=== PATIENT | male | born 1955 | race Caucasian/White ===

== ENCOUNTER 2017-03-01 15:59 | Inpatient (IN) ==
[2017-03-01 16:33] VITALS: BMI 5174.9
[2017-03-01] MEDS ORDERED: NITROSTAT SL PRN (16:35)
[2017-03-01] MEDS ORDERED: VISTARIL INJ IM PRN (16:35)
[2017-03-01] MEDS ORDERED: TYLENOL PO PRN (16:35)
[2017-03-01] MEDS ORDERED: ATROPINE SULFATE PFS IVP PRN (16:35)
[2017-03-01] MEDS ORDERED: MORPHINE 4 MG/ML VIAL IVP PRN (16:35)
[2017-03-01] MEDS: SOLU-MEDROL 125 MG IVP SCH ×2 (17:47→20:24)
[2017-03-01] MEDS: ROCEPHIN 1 GM in SODIUM CHLORIDE 50 ML IV SCH (17:48)
[2017-03-01] MEDS: DEXTROSE 5%-1/2NS IV SOLUTION 1,000 ML IV SCH (17:48)
[2017-03-01] MEDS: TUSSIONEX PO SCH ×2 (17:54→20:23)
[2017-03-01] MEDS ORDERED: ZOFRAN 4 MG/2 ML IVP PRN (18:36)
[2017-03-01] MEDS ORDERED: ZITHROMAX 500 MG in SODIUM CHLORIDE 250 ML IV SCH (19:00)
[2017-03-01] MEDS: TRILEPTAL PO SCH (20:24)
[2017-03-01] MEDS ORDERED: BETAPACE PO SCH (21:00)
[2017-03-01] MEDS ORDERED: NON-FORMULARY MEDICATION (Oxcarbazepine [Trileptal] 300 MG) PO SCH (21:00)
[2017-03-02] MEDS: SOLU-MEDROL 125 MG IVP SCH (05:18)
--- NOTE | 2017-03-02 07:17 | DI ---
EXAM: Single view of the chest. History: Pneumonia Comparison: Chest radiograph 06/24/2015 Findings: Heart size is normal. No focal consolidation. No appreciable pleural fluid and no pneumo thorax. No acute osseous abnormalities. Impression: No acute cardiopulmonary process
[2017-03-02] MEDS: ASPIRIN EC PO SCH (08:43)
[2017-03-02] MEDS: ZITHROMAX PO SCH (08:43)
[2017-03-02] MEDS: ROCEPHIN 1 GM in SODIUM CHLORIDE 50 ML IV SCH (08:43)
[2017-03-02] MEDS: TUSSIONEX PO SCH ×2 (08:43→20:09)
[2017-03-02] MEDS: BETAPACE PO SCH (08:48)
--- NOTE | 2017-03-02 09:39 | PCM.PROG ---
Attending Provider: ATTENDING PROVIDER: Dr. MALDONADO COTTON This patient is seen with Therese Gunter, Nurse Practitioner. DATE OF SERVICE: 03/02/17 SUBJECTIVE: This 62 year old WHITE/ M was hospitalized 03/01/17. The patient is lying in bed, alert. Nausea is improved from yesterday. REVIEW OF SYSTEMS: CONSTITUTIONAL: Weakness. No night sweats. No fever or chills. HEENT: Eyes: No visual changes. No eye pain. No eye discharge. ENT: No runny nose. No epistaxis. No sinus pain. No odynophagia. No congestion. RESPIRATORY: Cough and congestion. No hemoptysis. No shortness of breath. CARDIOVASCULAR: No angina symptoms. No CHF symptoms. No atypical chest pain for CAD. No palpitations. No orthopnea.. GASTROINTESTINAL: No abdominal pain. No nausea or vomiting. No diarrhea or constipation. No hematemesis. No hematochezia. GENITOURINARY: No urgency. No frequency. No dysuria. No hematuria. No obstructive symptoms. No discharge. No pain. No significant abnormal bleeding. MUSCULOSKELETAL: No musculoskeletal pain; no joint swelling. NEUROLOGICAL: Awake, alert, oriented to time, place and person. No headache. No neck pain. No syncope. No seizures. No dizziness. PSYCHIATRIC: Not anxious. No depression. No suicidal thoughts. No homicidal thoughts. SKIN: No rash. No lesions. No wounds. ENDOCRINE: No unexplained weight loss. No weight gain. HEMATOLOGIC/LYMPHATIC: No anemia. No purpura. No petechiae. No prolonged or excessive bleeding. No palpable lymph nodes. PHYSICAL EXAMINATION: GENERAL: The patient is awake, alert and oriented, lying in bed in no distress. VITAL SIGNS: Temperature 97.4 F, Pulse 74, Respiratory Rate 18, BP 131/74, Pulse Ox 91% HEENT: Head normocephalic, atraumatic. Eyes: Extraocular muscles are intact. Pupils are equal, round and reactive to light and accommodation. Ears: No lesions. Nose appeared normal. Throat: No exudate or erythema. NECK: Supple. No JVD, no carotid bruit. No lymphadenopathy or thyromegaly. LUNGS: Diminished breath sounds with wheeze on the right. Percussion note normal. Chest symmetrical. HEART: S1, S2, no S3. No murmurs. No cyanosis or clubbing. No ascites. Pulses: Dorsalis pedis and posterior tibial pulses +1 to +2 both sides. ABDOMEN: Soft. Non-tender. Bowel sounds active. No CVA tenderness. No mass felt. EXTREMITIES: No edema. Full range of motion of all extremities, equal. NEUROLOGIC: No focal deficit. Cranial nerves II through XII are grossly intact. No headache, no double vision or headache. SKIN: Not dry. Intact. Turgor-normal. LYMPHATIC: No palpable lymph nodes/no lymphedema. MUSCULOSKELETAL: Normal joints with no swelling. Muscle tone is normal. LAB REVIEW: 03/02/17 04:30 03/02/17 04:30 03/02/17 04:45: Urine Color Yellow, Urine Clarity Clear, Urine pH 6.0, Ur Specific [place] 1.025, Urine Protein 1+, Urine Glucose (UA) Negative, Urine Ketones 2+, Urine Blood Negative, Urine Nitrite Negative, Urine Bilirubin Negative, Urine Urobilinogen 0.2, Ur Leukocyte Esterase Negative, Ur Squamous Epith Cells Not present, Hyaline Casts 0-2, Urine Mucus 1+ 03/02/17 04:30: Sodium 135 L, Potassium 4.0, Chloride 102, Carbon Dioxide 27, Anion Gap 10.0, BUN 17, Creatinine 0.90, Estimated GFR (MDRD) 86.00, BUN/ Creatinine Ratio 18.88, Glucose 195 H D, Calcium 8.7, Total Bilirubin 0.5, AST 19, ALT 29, Alkaline Phosphatase 95, Total Protein 8.0, Albumin 3.5, Globulin 4.5, Albumin/Globulin Ratio 0.78 03/02/17 04:30: WBC 12.39 H, RBC 5.04, Hgb 15.3, Hct 43.7, MCV 86.7, MCH 30.4, MCHC 35.0, RDW Coeff of Darian 13.6, Plt Count 299, Immature Gran % (Auto) 0.6, Neut % (Auto) 86.3, Lymph % (Auto) 12.3, [place] % (Auto) 0.6, Eos % (Auto) 0.0, Baso % (Auto) 0.2, Immature Gran # (Auto) 0.1, Neut # 10.7 H, Lymph # 1.5, [place] # 0.1 L, Eos # 0.0, Baso # 0.0 03/01/17 19:25: Influenza A (Rapid) Negative by naat, Influenza B (Rapid) Negative by naat 03/01/17 17:15: Sodium 137, Potassium 4.0, Chloride 101, Carbon Dioxide 29, Anion Gap 11.0, BUN 18, Creatinine 1.02, Estimated GFR (MDRD) 74.00, BUN/ Creatinine Ratio 17.64, Glucose 132 H, Calcium 9.0, Total Bilirubin 0.6, AST 22 , ALT 30, Alkaline Phosphatase 98, Total Creatine Kinase 95, Troponin I < 0.0100 , Total Protein 8.3 H, Albumin 3.8, Globulin 4.5, Albumin/Globulin Ratio 0.84 03/01/17 17:00: WBC 12.84 H, RBC 5.07, Hgb 15.6, Hct 44.0, MCV 86.8, MCH 30.8, MCHC 35.5 H, RDW Coeff of Darian 13.6, Plt Count 285, Immature Gran % (Auto) 0.5, Neut % (Auto) 77.7, Lymph % (Auto) 14.8, [place] % (Auto) 6.3, Eos % (Auto) 0.4, Baso % (Auto) 0.3, Immature Gran # (Auto) 0.1, Neut # 10.0 H, Lymph # 1.9, [place] # 0.8, Eos # 0.1, Baso # 0.0 03/01/17 16:39: Puncture Site Rb, O2 Saturation 92.0 L, ABG pH 7.390, ABG pCO2 43.4, ABG pO2 63.0 L, ABG HCO3 26.3 H, ABG Total CO2 28, ABG Base Excess 1, FiO2 % 21.0 ASSESSMENT: 1. Acute bronchitis 2. Pleuritic pain 3. Vomiting which is improved PLAN: Start Xopenex t.i.d. Plan and coordination of the patient's care discussed in the presence of Franchise Development Manager and nurse. CONDITION: STABLE SCRIBED BY: PUSHPA IBARRA Pbx Repairer scribed while in presence of service performed by Dr. Cotton/Therese Gunter APRN on 03/02/17 ([id number])
[2017-03-02] MEDS: XOPENEX 1.25 MG NEB SCH ×3 (11:13→23:20)
--- NOTE | 2017-03-02 12:48 | HP ---
DATE OF SERVICE: 03/01/17 HISTORY OF PRESENT ILLNESS: This is a 62-year-old male with nausea/vomiting, vomiting here almost five times times 24 hours. Also, shortness of breath, cough and congestion times three days. Dizzy, unable to walk without help. Sputum is yellowish. No symptoms of CHF or CAD. PAST MEDICAL HISTORY: Sleep apnea on CPAP Seizure disorder Dyslipidemia PVC's Hyperglycemia PAST SURGICAL HISTORY: Appendectomy (childhood) REVIEW OF SYSTEMS: CONSTITUTIONAL: Positive for fatigue. No fever. HEENT: Sinus drainage. No sore throat. RESPIRATORY: Cough and congestion. No hemoptysis. CARDIOVASCULAR: Positive for shortness of breath. No atypical chest pain for coronary artery disease. No angina, CHF symptoms or palpitations. GASTROINTESTINAL: No melena or abdominal pain. No GERD. GENITOURINARY: No hematuria, no prostatism, no polyuria. COMPLIANCE ANALYST: No blackout, no dizziness, no headache, no double vision. MUSCULOSKELETAL: Osteoarthritis pain. No joint swelling. ENDOCRINE: No weight loss, no weight gain. SKIN: Dry. No rash. PSYCHIATRIC: Not anxious, no depression, no suicidal thoughts, no homicidal thoughts. SOCIAL HISTORY: The patient is (42 years), children 2 (one boy, age 38 and one girl age 33). Occupation - CPA. Nonsmoker. No alcohol use. No illicit drug use. FAMILY HISTORY: Father at age 82 with COPD, renal disease. Mother at age 85, ALS. No brothers. One sister, age 67 with diabetes mellitus, hyperlipidemia and hypertension. MEDICATIONS: Simvastatin 20 mg one daily Betapace 80 mg one daily ASA daily Trileptal 300 mg one h.s. ALLERGIES: IBUPROFEN, MORPHINE, MRI IVP DYE, CODEINE, MOBIC, LORTAB (nausea) PHYSICAL EXAMINATION: V/S: Pulse 85, BP 146/86, temperature 97, 02 sat 95%, weight 264.8. Height 6', BMI 38. GENERAL APPEARANCE: Oriented times three. HEENT: Normal. NECK: No JVP, no bruits. RESPIRATORY: Lungs: Creps on the right greater on left with mild wheeze. CARDIOVASCULAR: S1, S2, no S3, no murmurs. No cyanosis, clubbing. No ascites. GI/ABDOMEN: No tenderness. Bowel sounds are active. EXTREMITIES: No edema, pulses +1, equal. COMPLIANCE ANALYST: Deep tendon reflexes, sensory, motor and gait all normal. SKIN: Dry. Turgor poor. ASSESSMENT: 1. ACUTE PNEUMONITIS, RIGHT LOWER LOBE/BRONCHITIS/PLEURITIC PAIN 2. DEHYDRATION 3. ACUTE GASTRITIS 4. SLEEP APNEA ON CPAP 5. SEIZURE DISORDER 6. DYSLIPIDEMIA 7. PVC 8. HYPERGLYCEMIA PLAN: 1. Admit 2. Regular diet 3. Routine telemetry orders 4. Skip cardiac markers 5. 1000 cc's D5 1/2 NS q.12hourly 6. Rapid flu A & B 7. Betapace 80 mg p.o. daily 8. Trileptal 300 mg p.o. at h.s. daily 9. ABG 10. Sputum for culture and sensitivity & gram stain 11. Solu-Cortef 125 mg IV now and 8 hourly 12. Rocephin 1 gm IV now and 24 hourly 13. Tussionex one teaspoon p.o. b.i.d. and one now 14. Daily CBC and CMP 15. Xanax 0.25 mg p.o. at h.s. daily TIME SPENT: More than 70 minutes. MTDD
[2017-03-02] MEDS: DEXTROSE 5%-1/2NS IV SOLUTION 1,000 ML IV SCH (13:29)
[2017-03-02] MEDS: SOLU-CORTEF 250 MG IVP SCH ×2 (13:29→20:09)
[2017-03-02] MEDS: TRILEPTAL PO SCH (20:15)
[2017-03-02] MEDS: XANAX PO SCH (20:17)
[2017-03-03] MEDS: DEXTROSE 5%-1/2NS IV SOLUTION 1,000 ML IV SCH ×2 (03:03→09:31)
[2017-03-03] MEDS: XOPENEX 1.25 MG NEB SCH ×4 (04:07→22:17)
[2017-03-03] MEDS: SOLU-CORTEF 250 MG IVP SCH ×3 (05:09→20:16)
[2017-03-03] MEDS: ROCEPHIN 1 GM in SODIUM CHLORIDE 50 ML IV SCH (08:15)
[2017-03-03] MEDS: TUSSIONEX PO SCH ×2 (08:15→20:16)
[2017-03-03] MEDS: ZITHROMAX PO SCH (08:15)
[2017-03-03] MEDS: ASPIRIN EC PO SCH (08:15)
[2017-03-03] MEDS: BETAPACE PO SCH (08:15)
--- NOTE | 2017-03-03 09:45 | PCM.PROG ---
Attending Provider: ATTENDING PROVIDER: Dr. MALDONADO COTTON DATE OF SERVICE: 03/03/17 SUBJECTIVE: This 62 year old WHITE/ M was hospitalized 03/01/17. The patient is hospitalized with acute pneumonitis/bronchitis, dehydration and nausea which has subsided. No vomiting. He is still coughing which is mild. REVIEW OF SYSTEMS: CONSTITUTIONAL: Fatigue and weakness. No night sweats. No fever or chills. HEENT: Eyes: No visual changes. No eye pain. No eye discharge. ENT: No runny nose. No epistaxis. No sinus pain. No odynophagia. No congestion. RESPIRATORY: Mild cough and congestion. No hemoptysis. No shortness of breath. CARDIOVASCULAR: No angina symptoms. No CHF symptoms. No atypical chest pain for CAD. No palpitations. No orthopnea.. GASTROINTESTINAL: Appetite is improving. No abdominal pain. No nausea or vomiting. No diarrhea or constipation. No hematemesis. No hematochezia. GENITOURINARY: No urgency. No frequency. No dysuria. No hematuria. No obstructive symptoms. No discharge. No pain. No significant abnormal bleeding. MUSCULOSKELETAL: No musculoskeletal pain; no joint swelling. NEUROLOGICAL: Awake, alert, oriented to time, place and person. No headache. No neck pain. No syncope. No seizures. No dizziness. PSYCHIATRIC: Not anxious. No depression. No suicidal thoughts. No homicidal thoughts. SKIN: No rash. No lesions. No wounds. ENDOCRINE: No unexplained weight loss. No weight gain. HEMATOLOGIC/LYMPHATIC: No anemia. No purpura. No petechiae. No prolonged or excessive bleeding. No palpable lymph nodes. PHYSICAL EXAMINATION: GENERAL: The patient is awake, alert and oriented, lying in bed in no distress. VITAL SIGNS: Temperature 98 F, Pulse 80, Respiratory Rate 16, BP 120/76, Pulse Ox 92% HEENT: Head normocephalic, atraumatic. Eyes: Extraocular muscles are intact. Pupils are equal, round and reactive to light and accommodation. Ears: No lesions. Nose appeared normal. Throat: No exudate or erythema. NECK: Supple. No JVD, no carotid bruit. No lymphadenopathy or thyromegaly. LUNGS: Mild expiratory wheeze. Percussion note normal. Chest symmetrical. HEART: S1, S2, no S3. No murmurs. No cyanosis or clubbing. No ascites. Pulses: Dorsalis pedis and posterior tibial pulses +1 to +2 both sides. ABDOMEN: Soft. Non-tender. Bowel sounds active. No CVA tenderness. No mass felt. EXTREMITIES: No edema. Full range of motion of all extremities, equal. NEUROLOGIC: No focal deficit. Cranial nerves II through XII are grossly intact. No headache, no double vision or headache. SKIN: Not dry. Intact. Turgor-normal. LYMPHATIC: No palpable lymph nodes/no lymphedema. MUSCULOSKELETAL: Normal joints with no swelling. Muscle tone is normal. LAB REVIEW: 03/02/17 04:30 03/02/17 04:30 ASSESSMENT: 1. PNEUMONITIS/BRONCHITIS/DEHYDRATION SEEMS TO BE IMPROVING PLAN: 1. Continue Tussionex one teaspoon twice a day 2. Continue Xopenex 3. Continue nebs 4. D/C IV fluids Plan and coordination of the patient's care discussed in the presence of Electrician Wiring and nurse. CONDITION: Improving SCRIBED BY: PUSHPA IBARRA Roaster Supervisor scribed while in presence of service performed by Dr. MALDONADO COTTON on 03/03/17 ([id number])
[2017-03-03] MEDS: TRILEPTAL PO SCH (20:16)
[2017-03-03] MEDS: XANAX PO SCH (20:16)
[2017-03-04] MEDS: XOPENEX 1.25 MG NEB SCH ×2 (04:08→11:25)
[2017-03-04] MEDS: SOLU-CORTEF 250 MG IVP SCH ×2 (05:23→13:30)
[2017-03-04] MEDS: ROCEPHIN 1 GM in SODIUM CHLORIDE 50 ML IV SCH (08:27)
[2017-03-04] MEDS: BETAPACE PO SCH (08:27)
[2017-03-04] MEDS: TUSSIONEX PO SCH (08:27)
[2017-03-04] MEDS: ASPIRIN EC PO SCH (08:28)
--- NOTE | 2017-03-04 09:55 | PCM.PROG ---
Attending Provider: ATTENDING PROVIDER: Dr. MALDONADO COTTON This patient is seen with Therese Gunter, Nurse Practitioner. DATE OF SERVICE: 03/04/17 SUBJECTIVE: This 62 year old WHITE/ M was hospitalized 03/01/17. The patient is lying in bed, alert. He has been up and about, feeling much better. Nausea is gone. He is eating well. REVIEW OF SYSTEMS: CONSTITUTIONAL: No night sweats. No fatigue, malaise, lethargy. No fever or chills. HEENT: Eyes: No visual changes. No eye pain. No eye discharge. ENT: No runny nose. No epistaxis. No sinus pain. No odynophagia. No congestion. RESPIRATORY: Cough and congestion. No hemoptysis. No shortness of breath. CARDIOVASCULAR: No angina symptoms. No CHF symptoms. No atypical chest pain for CAD. No palpitations. No orthopnea.. GASTROINTESTINAL: No abdominal pain. No nausea or vomiting. No diarrhea or constipation. No hematemesis. No hematochezia. GENITOURINARY: No urgency. No frequency. No dysuria. No hematuria. No obstructive symptoms. No discharge. No pain. No significant abnormal bleeding. MUSCULOSKELETAL: No musculoskeletal pain; no joint swelling. NEUROLOGICAL: Awake, alert, oriented to time, place and person. No headache. No neck pain. No syncope. No seizures. No dizziness. PSYCHIATRIC: Not anxious. No depression. No suicidal thoughts. No homicidal thoughts. SKIN: No rash. No lesions. No wounds. ENDOCRINE: No unexplained weight loss. No weight gain. HEMATOLOGIC/LYMPHATIC: No anemia. No purpura. No petechiae. No prolonged or excessive bleeding. No palpable lymph nodes. PHYSICAL EXAMINATION: GENERAL: The patient is awake, alert and oriented, lying/sitting in bed in no distress. VITAL SIGNS: Temperature 97.8 F, Pulse 68, Respiratory Rate 14, BP 122/73, Pulse Ox 92% HEENT: Head normocephalic, atraumatic. Eyes: Extraocular muscles are intact. Pupils are equal, round and reactive to light and accommodation. Ears: No lesions. Nose appeared normal. Throat: No exudate or erythema. NECK: Supple. No JVD, no carotid bruit. No lymphadenopathy or thyromegaly. LUNGS: Diminished breath sounds bilaterally. Clear to auscultation. Percussion note normal. Chest symmetrical. HEART: S1, S2, no S3. No murmurs. No cyanosis or clubbing. No ascites. Pulses: Dorsalis pedis and posterior tibial pulses +1 to +2 both sides. ABDOMEN: Soft. Non-tender. Bowel sounds active. No CVA tenderness. No mass felt. EXTREMITIES: No edema. Full range of motion of all extremities, equal. NEUROLOGIC: No focal deficit. Cranial nerves II through XII are grossly intact. No headache, no double vision or headache. SKIN: Not dry. Intact. Turgor-normal. LYMPHATIC: No palpable lymph nodes/no lymphedema. MUSCULOSKELETAL: Normal joints with no swelling. Muscle tone is normal. LAB REVIEW: 03/04/17 05:00 03/04/17 05:00 03/04/17 05:00: Sodium 140, Potassium 3.9, Chloride 105, Carbon Dioxide 27, Anion Gap 11.9, BUN 21 H, Creatinine 0.90, Estimated GFR (MDRD) 86.00, BUN/ Creatinine Ratio 23.33, Glucose 119 H, Calcium 8.4, Total Bilirubin 0.3, AST 13 L, ALT 20, Alkaline Phosphatase 82, Total Protein 7.1, Albumin 3.3 L, Globulin 3.8, Albumin/Globulin Ratio 0.87 03/04/17 05:00: WBC 20.49 H D, RBC 4.68 L, Hgb 14.3, Hct 40.6 L, MCV 86.8, MCH 30.6, MCHC 35.2, RDW Coeff of Darian 14.0, Plt Count 321, Immature Gran % (Auto) 2.7, Neut % (Auto) 73.4, Lymph % (Auto) 17.1, [place] % (Auto) 6.5, Eos % (Auto) 0.0, Baso % (Auto) 0.3, Immature Gran # (Auto) 0.6, Neut # 15.0 H, Lymph # 3.5 H , [place] # 1.3, Eos # 0.0, Baso # 0.1 ASSESSMENT: 1. PNEUMONITIS/BRONCHITIS/DEHYDRATION SEEMS TO BE IMPROVING 2. ASTHMA PLAN: 1. Discharge home 2. Keflex 500 t.i.d. for 7 days 3. Tussionex b.i.d. 4. Xopenex 1.25 neb treatments, unable to tolerate p.o. steroids. The patient is instructed to use neb treatments until cough resolves. EDUCATION: Discussed need for nebulizer and breathing treatments. The patient states that he has problems with Albuterol and prefers Xopenex. He is agreeable to be compliant with instructions for use. Plan and coordination of the patient's care discussed in the presence of S3B Multi Sensor Operator and nurse. CONDITION: Stable SCRIBED BY: PUSHPA IBARRA Sql Server Dba scribed while in presence of service performed by Dr. Cotton/Therese Gunter APRN on 03/04/17 ([id number])
[2017-03-04 10:28] VITALS: BP 140/71; TEMP 98.5
--- NOTE | 2017-03-04 11:50 | CM.DICTOOL ---
ADMISSION: 03/01/17 15:59 DISCHARGE: 03/04/17 DATE OF SERVICE: 03/04/17 FINAL DIAGNOSIS ACUTE PNEUMONITIS BRONCHITIS, ACUTE ASTHMA TYPE SYMPTOMS PLEURITIC TYPE PAIN DYSLIPIDEMIA HYPERTENSION SEIZURES NONSMOKER LAST VITALS Temp Pulse Resp BP Pulse Ox 98.5 F 73 20 140/71 94 L 03/04/17 10:00 03/04/17 10:00 03/04/17 10:00 03/04/17 10:00 03/04/17 10:00 ACTIVE HOME MEDICATIONS Aspirin (Aspirin Ec) 81 mg PO DAILYWM LICHA Last Admin: 03/04/17 08:28 Dose: 81 mg Oxcarbazepine (Trileptal) 300 mg PO BEDTIME LICHA Last Admin: 03/03/17 20:16 Dose: 300 mg Simvastatin 20 mg PO at BEDTIME Sotalol HCl (Betapace) 80 mg PO DAILY [facility] (INCREASED FROM 40 MG) Last Admin: 03/04/17 08:27 Dose: 80 mg NEW PRESCRIPTIONS: PLEASE NOTE THE INCREASE IN YOUR SOTALOL (BETAPACE) TO 80 MG BY MOUTH DAILY NEW PRESCRIPTIONS LEVALBUTEROL HCL 1.25 MG, ADMINISTER ONE NEB THREE TIMES DAILY KEFLEX 500 MG, TAKE ONE CAPSULE BY MOUTH THREE TIMES DAILY FOR 7 DAYS CHLORPHENIR/HYDROCODONE POLISTIREX (TUSSIONEX) 5 ML, TAKE BY MOUTH TWICE DAILY IF NEEDED FOR COUGHING (4 OUNCES) SMOKING: NONSMOKER DISEASE SPECIFIC EDUCATION: BRONCHITIS ASTHMA PLEURITIC TYPE CHEST PAIN HOME MEDICATIONS NEW PRESCRIPTIONS NEBULIZED BREATHING TREATMENTS FOLLOW UP LAB REVIEW: 03/04/17 05:00 03/04/17 05:00 03/04/17 05:00: Sodium 140, Potassium 3.9, Chloride 105, Carbon Dioxide 27, Anion Gap 11.9, BUN 21 H, Creatinine 0.90, Estimated GFR (MDRD) 86.00, BUN/ Creatinine Ratio 23.33, Glucose 119 H, Calcium 8.4, Total Bilirubin 0.3, AST 13 L, ALT 20, Alkaline Phosphatase 82, Total Protein 7.1, Albumin 3.3 L, Globulin 3.8, Albumin/Globulin Ratio 0.87 03/04/17 05:00: WBC 20.49 H D, RBC 4.68 L, Hgb 14.3, Hct 40.6 L, MCV 86.8, MCH 30.6, MCHC 35.2, RDW Coeff of Darian 14.0, Plt Count 321, Immature Gran % (Auto) 2.7, Neut % (Auto) 73.4, Lymph % (Auto) 17.1, [place] % (Auto) 6.5, Eos % (Auto) 0.0, Baso % (Auto) 0.3, Immature Gran # (Auto) 0.6, Neut # 15.0 H, Lymph # 3.5 H , [place] # 1.3, Eos # 0.0, Baso # 0.1 PLAN: DISCHARGE HOME TODAY RETURN TO SEE DR. COTTON IN HIS OFFICE ON [facility] WILL DELIVER YOUR NEBULIZER PRIOR TO DISCHARGE [address] [place] [address] #[phone] RESUME YOUR HOME MEDICATIONS PER LIST PROVIDED BY THE NURSING STAFF PLEASE NOTE THE INCREASE IN YOUR SOTALOL (BETAPACE) TO 80 MG BY MOUTH DAILY NEW PRESCRIPTIONS LEVALBUTEROL HCL 1.25 MG, ADMINISTER ONE NEB THREE TIMES DAILY KEFLEX 500 MG, TAKE ONE CAPSULE BY MOUTH THREE TIMES DAILY FOR 7 DAYS CHLORPHENIR/HYDROCODONE POLISTIREX (TUSSIONEX) 5 ML, TAKE BY MOUTH TWICE DAILY IF NEEDED FOR COUGHING (4 OUNCES) ACTIVITY GET PLENTY OF REST AT HOME. GRADUALLY INCREASE YOUR ACTIVITY LEVEL ACCORDING TO YOUR TOLERATION. DIET HEALTHY HEART SUMMARY THE PATIENT IS ALERT AND ORIENTED X3. HE CURRENTLY RESIDES AT HOME WITH HIS SPOUSE. HE IS INDEPENDENT WITH ADL'S AND HAS NOT REQUIRED DME, HOME HEALTH OR HOMEMAKING SERVICES. HOWEVER, FOLLOWING THIS ADMISSION, HE WILL REQUIRE NEBULIZED BREATHING TREATMENTS THREE TIMES DAILY. HE TELLS US THE ALBUTEROL MAKES HIM FEEL "VERY JITTERY." HE HAS REQUESTED XOPENEX FOR HIS TREATMENTS. [facility] WILL PROVIDE THE NEBULIZER JUST PRIOR TO LEAVING THE HOSPITAL. MR. VELARDE DESIRES TO RETURN HOME AT DISCHARGE. HIS SKIN TURGOR IS INTACT AND WITHOUT DECUBITUS ULCERS. HYDRATION AND NUTRITIONAL STATUS ARE VERY GOOD. HE HAS RESPONDED VERY WELL TO THE TREATMENT PROVIDED DURING THIS HOSPITAL STAY. HE IS AFEBRILE AND FEELING BETTER AT DISCHARGE. HE IS AWARE AND AGREEABLE FOR TODAY'S DISCHARGE PLANS. CURRENT CODE STATUS FULL CODE MARISSA WATTS APRN MALDONADO COTTON M.D.
--- NOTE | 2017-03-04 14:10 | PN ---
DATE OF SERVICE: 03/02/17 SUBJECTIVE: The patient was hospitalized with flu type of symptoms-nausea, vomiting and bronchitis. The patient is a lot better. He is not nauseated anymore. He is waiting for his breakfast. His coughing is much less. On physical examination, decreased breath sounds, but no wheezing like yesterday. Hydration status has improved remarkably. CONDITION: Stable with acute bronchitis and pneumonitis along with gastritis. The patient was seen and examined with the nurse practitioner. BIMAL
--- NOTE | 2017-03-11 13:46 | PN ---
DATE OF SERVICE: 03/04/17 SUBJECTIVE: 62-year-old white male was hospitalized with acute bronchitis, pneumonitis, pleuritic pain, dehydration, nausea and vomiting. The patient's condition within a couple of days of staying in the hospital has improved remarkably. He is up and about. His hydration status is improved. His vitals are stable with blood pressure 122/73, pulse ox 92%. Appetite has improved. He has much less coughing than before. PHYSICAL EXAMINATION: HEENT: Head normocephalic, atraumatic. Eyes: Extraocular muscles are intact. Pupils are equal, round and reactive to light and accommodation. Ears: No lesions. Nose appeared normal. Throat: No exudate or erythema. NECK: Supple. No JVD, no carotid bruit. No lymphadenopathy or thyromegaly. LUNGS: Good air entry with practically no wheeze. Clear to auscultation. Percussion note normal. Chest symmetrical. HEART: S1, S2, no S3. No murmurs. No cyanosis or clubbing. No ascites. Pulses: Dorsalis pedis and posterior tibial pulses +1 to +2 both sides. ABDOMEN: Soft. Nontender. Bowel sounds active. No CVA tenderness. No mass felt. EXTREMITIES: No edema. Full range of motion of all extremities, equal. NEUROLOGIC: No focal deficit. Cranial nerves II through XII are grossly intact. No headache, no double vision or headache. SKIN: Not dry. Intact. Turgor - normal. LYMPHATIC: No palpable lymph nodes/no lymphedema. MUSCULOSKELETAL: Normal joints with no swelling. Muscle tone is normal. ASSESSMENT: 1. The patient has leukocytosis from steroid use. PLAN: The patient will be discharged on Keflex, Tussionex, Xopenex. The patient was seen and examined with nurse practitioner. CONDITION: Stable. TIME SPENT: More than 30 minutes. Plan and coordination of the patient's care discussed in the presence of nurse. BIMAL
--- NOTE | 2017-03-11 13:48 | PN ---
CODING FOR BILLING 03/01/17 LEVEL 5 03/02/17 INTERMEDIATE 03/03/17 INTERMEDIATE 03/04/17 DISCHARGE MTDD
--- NOTE | 2017-03-19 14:54 | DS ---
DATE OF SERVICE: 03/04/17 FINAL DIAGNOSIS: 1. ACUTE PNEUMONITIS 2. BRONCHITIS, ACUTE 3. ASTHMA TYPE SYMPTOMS 4. PLEURITIC TYPE PAIN 5. DYSLIPIDEMIA 6. HYPERTENSION 7. SEIZURES 8. NONSMOKER LAST V/S: Temperature 98.5, pulse 73, respiratory rate 20, BP 140/71, pulse ox 94 DISCHARGE INSTRUCTIONS: Followup appointment with Dr. Noe in his office on 03/10/17 at 11:15 a.m.. No work until 03/11/17. [facility] will deliver your nebulizer prior to discharge. MEDICATIONS AT DISCHARGE: Aspirin 81 mg p.o. daily with meal LICHA Trileptal 300 mg p.o. bedtime LICHA Simvastatin 20 mg p.o. at bedtime Sotalol (Betapace) 80 mg p.o. daily LICHA (INCREASED FROM 40 MG) NEW PRESCRIPTIONS: Please note the increase in your Sotalol (Betapace) to 80 mg by mouth daily Levalbuterol HCL 1.25 mg administer one neb three times daily Keflex 500 mg take one capsule by mouth three times daily for 7 days Chlorphenir/Hydrocodone Polisttirex (Tussionex) 5 mL, take by mouth twice daily if needed for coughing (4 oz) DIET INSTRUCTIONS: Healthy Heart ACTIVITY: Get plenty of rest at home. Gradually increase your activity level according to your toleration. SMOKING: Nonsmoker DISEASE SPECIFIC EDUCATION: Bronchitis Asthma Pleuritic type chest pain Home medications New prescriptions Nebulized breathing treatments Follow up HOSPITAL COURSE: This 62-year-old white male who is a direct admit from our office. He presented with low grade fever, cough, congestion, shortness of breath and vomiting. He had been on a Z-pack for the past three days along with Prednisone but steadily worsened. He was subsequently admitted. Chest x-ray revealed no pneumonia just changes associated with bronchitis. We started him on IV Zofran 4 mg for nausea , Xopenex neb treatments q.6hr, Rocephin 1 gm IV daily, Zithromax 500 mg p.o. daily. After about 48 hours signs and symptoms seemed to significantly improve. He had no nausea after the first 24 hours and was able to eat light meals. Yesterday he started being able to get up and about. He was no longer short of breath. He stated he felt like the nebulization treatments were helping. His cough has lessened. He has not been running any fever. His weakness has improved. He seems to be doing significantly better. He was negative for the flu. He was experiencing some pleuritic type pain on admission which has sense resolved with the initiation of IV steroids, Solu-Cortef at 125 mg IV q.8hr. Today, his labs look stable. White count is elevated at 20,000 although this is likely due to IV steroid use. Hemoglobin 14.3, hematocrit 40.6 , platelets 321, sodium 140, potassium 3.9, BUN 21, creatinine 0.90, glucose 119. His vital signs have been steady. Temperature 97.8 today, heart rate 68, respirations 14, BP 122/73, pulse ox 93%. Last night he had 100% of his supper. This morning he stated he was ready to eat breakfast. He has been up and about walking around and he states he is feeling much better than admission. Will discharge him home on Keflex 500 mg p.o. t.i.d for the next 7 days. He cannot tolerate Prednisone orally as it upsets his stomach. He seems to have been helped quite a lot by the nebulization treatments. He is unable to tolerate Albuterol due to anxiety, palpitations and it makes him jittery. He has tolerated the Xopenex well. He does have history of asthma some years ago. This has likely been flared up with bronchitis. We will send him home with order for nebulizer machine as well as Xopenex nebulization solution and he is instructed to do this at least three times a day until the cough resolves. We will discharge him today in stable condition and followup with him next week. TIME SPENT: More than 60 minutes. BIMAL
== END 2017-03-04 13:50 | disposition home or self-care (01) | DRG 203 ==
LOC: MEDSURG B 15:59
PROVIDERS: ADMIT Internal Medicine; ATTEND Internal Medicine
DX: J20.9 Acute bronchitis, unspecified (principal); R09.89 Other specified symptoms and signs involving the circulatory and respiratory systems; R07.81 Pleurodynia; R11.2 Nausea with vomiting, unspecified; R06.02 Shortness of breath; E86.0 Dehydration; I10 Essential (primary) hypertension; G47.30 Sleep apnea, unspecified; E78.5 Hyperlipidemia, unspecified; Z99.89 Dependence on other enabling machines and devices; Z86.69 Personal history of other diseases of the nervous system and sense organs; Z79.899 Other long term (current) drug therapy
CPT/HCPCS: 36415; 80053; 81001; 82550; 82803; 84484; 85025; 87070; 87502; 93005; 93010; 94640